=== PATIENT | female | born 1995 | race Caucasian/White ===

== ENCOUNTER 2019-02-08 05:22 | Inpatient (IN) | payer OTHER ==
[~2019-02-08 05:22] MED LIST: Acetaminophen 500 MG TAB PO PRN; Butorphanol Tartrate 1 MG/ML VIAL SLOW IVP PRN; Carboprost 250 MCG/ML AMP IM PRN; Diphenoxylate HCl/Atropine Tablet PO PRN; HYDROcodone/Acetaminophen 5/325 mg Tablet PO PRN; Ibuprofen 800 MG TAB PO PRN; Lidocaine 1% (PF) 30 ML VIAL SC PRN; Methylergonovine 0.2 MG/ML VIAL IM PRN; Misoprostol 200 MCG TAB PR PRN; NS w/ Oxytocin 10 units 500 ML IV SCH; Ondansetron PF 4 MG/2 ML Vial IVP PRN; Promethazine HCl 25 MG/ML VIAL IM PRN; Zolpidem Tartrate 5 MG TAB PO PRN; hydrALAZINE 20 MG/ML VIAL SLOW IVP PRN
[2019-02-08] MEDS ORDERED: NS w/ Oxytocin 10 units 500 ML ONE (08:12)
[2019-02-08 08:24] LABS: Mean Corpuscular HGB CONC 35.1 g/dL (32.0-36.0); Mean Corpuscular Hemoglobin 33.1 pg (27.0-31.0); Mean Corpuscular Volume 94.3 fL (78.0-98.0); Mean Platelet Volume 8.8 fL (7.4-10.4); Platelet Count 165 thou/uL (130-400); RBC Distribution Width 11.4 % (11.5-14.5); Red Blood Cell (RBC) Count 3.02 mill/uL (4.20-5.40); White Blood Cell (WBC) Count 9.4 thou/uL (4.8-10.8)
[2019-02-08] MEDS: Lactated Ringer's 1,000 ML IV SCH ×3 (08:30→19:46)
[2019-02-08 08:58] LABS: Syphilis Antibody Nonreactive (Nonreactive); Syphilis Antibody Index 0.06 S/CO (<1.00 Non-Reactive)
[2019-02-08 09:06] LABS: HBSAg Index 0.31 S/CO (0-0.99); Hep B Surf Ag Non-Reactive S/CO (NonReactive)
[2019-02-08] MEDS ORDERED: Fentanyl 4 mcg/Bup 0.1% Cadd 100 ML ONE ×2 (11:16→19:43)
[2019-02-08] MEDS ORDERED: Lidocaine 1.5%/Epinephrine 1:200,000 5 ML AMPUL IJ ONE (11:23)
[2019-02-08] MEDS ORDERED: diphenhydrAMINE 50 MG/ML VIAL ONE (13:30)
[2019-02-08] MEDS ORDERED: diphenhydrAMINE 50 MG/ML VIAL IVP SCH (13:45)
[2019-02-08] MEDS: NS w/ Oxytocin 10 units 500 ML IV SCH ×2 (19:47→20:42)
[2019-02-08] MEDS: Misoprostol 100 MCG TAB VAG SCH ×2 (19:47→21:02)
--- NOTE | 2019-02-08 20:41 | PDOC.LDHP ---
Labor and Delivery H&P HPI: 23 y/o at 39 and 0 weeks, presents for induction of labor Due date: 02/15/19 Grav: 4 Para: 2 Current complications: none Abnormal US findings: No Current medications: pre- vitamins Previous surgical history: none Allergies/Adverse Reactions: Allergies Allergy/AdvReac Type Severity Reaction Status Date / Time aspirin Allergy Severe Swollen Verified 02/08/19 08:00 Lips Latex, Natural Rubber Allergy Mild Hives Verified 02/08/19 08:00 Social history: none - Physical Exam Vital signs reviewed and normal: yes General: NAD, resting Heart: RRR Lungs: CTAB Abdomen: NTTP Extremeties: no edema FHT: category 1 - Assessment L&D Assessment: elective induction at term - Plan Plan: admit to L&D, labor augmentation if indicated
[2019-02-08] MEDS ORDERED: Hydrocerin (Eucerin) Cream 120 gm Jar TOP PRN (22:49)
[2019-02-09] MEDS: NS / Oxytocin 40 units/1000ml 1,000 ML IV PRN ×2 (01:08→03:22)
[2019-02-09 01:09] LABS: Chlamydia by PCR Not Detected (NotDetected)
[2019-02-09] MEDS: Lactated Ringer's 1,000 ML IV SCH (02:05)
[2019-02-09] MEDS: Misoprostol 100 MCG TAB VAG SCH (02:05)
[2019-02-09] MEDS ORDERED: Zolpidem Tartrate 5 MG TAB PO PRN (03:22)
[2019-02-09] MEDS ORDERED: Benzocaine-Menthol 82.5 ML CAN TOP PRN (03:22)
[2019-02-09] MEDS ORDERED: Ondansetron PF 4 MG/2 ML Vial IVP PRN (03:22)
[2019-02-09] MEDS ORDERED: Promethazine HCl 25 MG/ML VIAL IM PRN (03:22)
[2019-02-09] MEDS ORDERED: Milk Of Magnesia 30 ML UDCUP PO PRN (03:22)
[2019-02-09] MEDS ORDERED: Preparation H Ointment 28 GM TUBE PR PRN (03:22)
[2019-02-09] MEDS ORDERED: Bisacodyl 10 MG SUPP PR PRN (03:22)
[2019-02-09] MEDS ORDERED: Methylergonovine 0.2 MG/ML VIAL IM PRN (03:22)
[2019-02-09] MEDS ORDERED: Misoprostol 200 MCG TAB VAG PRN (03:22)
[2019-02-09] MEDS ORDERED: Lanolin Ointment 7 GM TUBE TOP PRN (03:22)
[2019-02-09] MEDS ORDERED: NS / Oxytocin 40 units/1000ml 1,000 ML IV SCH (03:22)
[2019-02-09] MEDS ORDERED: HYDROcodone/Acetaminophen 5/325 mg Tablet PO PRN ×2 (03:22)
[2019-02-09] MEDS ORDERED: diphenhydrAMINE 25 MG CAP PO PRN (03:22)
[2019-02-09] MEDS ORDERED: hydrALAZINE 20 MG/ML VIAL SLOW IVP PRN (03:22)
[2019-02-09] MEDS: Ibuprofen 800 MG TAB PO SCH ×3 (04:56→21:45)
[2019-02-09 07:31] LABS: Band 26 % (5-11); Hemoglobin 10.6 g/dL (12.0-16.0); Lymphocytes 11 % (21-51); MDiff Complete? YES; Mean Corpuscular HGB CONC 34.2 g/dL (32.0-36.0); Mean Corpuscular Hemoglobin 32.5 pg (27.0-31.0); Mean Platelet Volume 9.1 fL (7.4-10.4); Monocytes 3 % (0-10); Neutrophil 60 % (42-75); Platelet Count 143 thou/uL (130-400); RBC Distribution Width 11.4 % (11.5-14.5); RBC Morphology Normal; Red Blood Cell (RBC) Count 3.27 mill/uL (4.20-5.40); White Blood Cell (WBC) Count 17.9 thou/uL (4.8-10.8)
[2019-02-09] MEDS: Prenatal Vitamin 1 TAB PO SCH (08:37)
[2019-02-09] MEDS: Docusate Calcium (SURFAK) 240 MG CAP PO SCH ×2 (08:37→21:45)
[2019-02-09] MEDS: Ferrous Sulfate 325 MG TAB PO SCH ×2 (09:10→18:28)
[2019-02-09] MEDS ORDERED: Sodium Chloride 0.9% 10 ML ONE (11:08)
[2019-02-10] MEDS: Ibuprofen 800 MG TAB PO SCH (05:52)
--- NOTE | 2019-02-10 06:12 | PDOC.PP ---
Post Progress Note Post Day #: 1 PO intake tolerated: yes Flatus: yes Ambulation: yes Vital Signs (12 hours) Temp Pulse Resp BP 02/10/19 00:00 98.5 F 85 20 117/62 02/09/19 20:01 97.9 F 69 20 116/69 02/09/19 18:26 98.2 F 80 18 114/57 L Weight Weight 206 lb 7.266 oz - Physical Examination General: NAD Cardiovascular: no m/r/g, RRR Respiratory: clear to auscultation bilaterally, non-labored breathing Abdominal: + bowel sounds, lochia Extremities: negative homans (B) Neurological: no gross focal deficits Psychiatric: A&Ox3, normal affect Result Diagrams: 02/09/19 06:06 Additional Labs: Post Labs Blood Type O POSITIVE 02/08/19 08:23 Hep Bs Antigen Non-Reactive S/CO (NonReactive) 02/08/19 07:15
[2019-02-10 08:04] VITALS: TEMP 98
[2019-02-10] MEDS: Ferrous Sulfate 325 MG TAB PO SCH (08:27)
[2019-02-10 08:41] VITALS: BP 95/51
[2019-02-10] MEDS ORDERED: Adacel (T-DAP) 0.5 ML SYRINGE IM ONE (09:00)
[2019-02-10] MEDS ORDERED: Measles/Mumps/Rubella 10 MCG/0.5 ML VIAL SC ONE (09:00)
[2019-02-10] MEDS ORDERED: Varicella virus, LIVE 0.5 ML VIAL SC ONE (09:00)
[2019-02-10] MEDS: Docusate Calcium (SURFAK) 240 MG CAP PO SCH (09:52)
[2019-02-10] MEDS: Prenatal Vitamin 1 TAB PO SCH (09:52)
== END 2019-02-10 13:20 | disposition home or self-care (01) | DRG 807 ==
LOC: L&D 06:51 → 3SW 02-09 03:47
PROVIDERS: ADMIT Obstetrics & Gynecology; ATTEND Obstetrics & Gynecology
PROC: 10E0XZZ Delivery of Products of Conception, External Approach (ICD-10-PCS; principal; 2019-02-09)
PROC: 10907ZC Drainage of Amniotic Fluid, Therapeutic from Products of Conception, Via Natural or Artificial Opening (ICD-10-PCS; 2019-02-09)
DX: O80 Encounter for full-term uncomplicated delivery (principal); Z37.0 Single live birth; Z3A.39 39 weeks gestation of pregnancy; Z88.8 Allergy status to other drugs, medicaments and biological substances; Z91.040 Latex allergy status
CPT/HCPCS: 36415; 51702; 85025; 85027; 86780; 86850; 86900; 86901; 87340; 87491; J1200; J2001; J2590; J3490